=== PATIENT | female | born 1980 | race African-American/Black ===

== ENCOUNTER 2020-08-28 00:24 | Emergency (ER) | payer OTHER ==
[~2020-08-28] VITALS: Ht 157.5 cm; Wt 81.2 kg
[2020-08-28 00:42] VITALS: BP 140/86
== END 2020-08-28 02:31 | disposition left against medical advice (07) ==
LOC: EDBD 00:24 → ER 00:24
DX: Z04.3 Encounter for examination and observation following other accident (principal); Z53.21 Procedure and treatment not carried out due to patient leaving prior to being seen by health care provider; V49.9XXA Car occupant (driver) (passenger) injured in unspecified traffic accident, initial encounter; Y93.89 Activity, other specified; Y92.89 Other specified places as the place of occurrence of the external cause; Y99.8 Other external cause status